=== PATIENT | female | born 1960 | race Caucasian/White ===

== ENCOUNTER 2018-02-17 12:21 | Inpatient (IN) | payer OTHER ==
[~2018-02-17] VITALS: Ht 154.9 cm; Wt 93.6 kg
[~2018-02-17 12:21] MED LIST: ALBU90OI6; BECLOMETHASONE; BUPR100ER; CITA20; CYCL10; DOXY100 PO; DULO30; GLIP5; HYDCHL12.5; INSULANPEN; LISI5; METF500; METF850; METPHE5; Norco 10-325 T1 EACH PO; PRED20 PO; QUET25; SALM50IP; TRAM50
[2018-02-17 13:40] LABS: Source, Urine Clean Catch
[2018-02-17 14:01] LABS: Appearance, Urine Clear (Clear); Bilirubin, Urine Neg (Neg); Blood, Urine Neg (Neg); Color, Urine Yellow (P-Yellow); Glucose Qualitative, Urine 3+ (Neg); Ketones, Urine Neg (Neg); Leukocyte Esterase, Urine Neg (Neg); Nitrite, Urine Neg (Neg); Protein, Urine 2+ (Neg); Urobilinogen, Urine NORM (Normal)
[2018-02-17 14:24] LABS: Amorphous Light (0-Heavy); Bacteria Rare /hpf; Red Blood Cells, Urine 0-2 /hpf (0-2); Squamous Epithelial Cells Rare /hpf (Few); White Blood Cells, Urine 0-2 /hpf (0-5)
[2018-02-18 05:22] LABS: Hematocrit 23.4 % (33.0-51.0); Hemoglobin 7.2 g/dL (11.5-16.0); Mean Corpuscular HGB 25.6 pg (26.0-34.0); Mean Corpuscular HGB Conc 30.8 g/dL (31.5-36.5); Mean Corpuscular Volume 83 fL (80-100); Platelet Count 339 K/mm3 (150-400); RDW Coefficient Variation 14.2 % (11.7-14.2); RDW Standard Deviation 43.1 fL (35.1-46.3); Red Blood Cell Count 2.81 M/mm3 (3.80-5.20); White Blood Cell Count 16.75 K/mm3 (4.00-11.30)
[2018-02-18 05:42] LABS: Albumin, Blood 2.5 g/dL (3.4-5.0); Albumin/Globulin Ratio 0.7 (0.8-1.8); Bilirubin, Total 0.3 mg/dL (0.1-1.0); Bun/Creatinine Ratio 14.3 (12.0-20.0); Calcium, Blood 7.6 mg/dL (8.5-10.1); Creatinine, Blood 1.68 mg/dL (0.40-1.00); Globulin, Blood 3.6 g/dL (2.2-4.0); Potassium, Blood 3.7 mmol/L (3.5-5.5); Total Protein, Blood 6.1 g/dL (6.4-8.2)
[2018-02-18] MEDS ORDERED: METR500 PO (13:26)
[2018-02-18] MEDS ORDERED: CIPR250 PO (13:26)
[2018-02-18] MEDS ORDERED: AMLO10 PO (16:56)
== END 2018-02-18 14:17 | disposition home or self-care (01) | DRG 392 ==
LOC: ER 12:21 → MEDS 17:24 → ENPENDDIS 02-18 12:00 → MEDS 02-18 14:17
PROVIDERS: Emergency Medicine; Internal Medicine
DX: A09 Infectious gastroenteritis and colitis, unspecified (principal); N17.9 Acute kidney failure, unspecified; E11.22 Type 2 diabetes mellitus with diabetic chronic kidney disease; E11.40 Type 2 diabetes mellitus with diabetic neuropathy, unspecified; E11.43 Type 2 diabetes mellitus with diabetic autonomic (poly)neuropathy; I12.9 Hypertensive chronic kidney disease with stage 1 through stage 4 chronic kidney disease, or unspecified chronic kidney disease; K31.84 Gastroparesis; N18.9 Chronic kidney disease, unspecified; Z79.84 Long term (current) use of oral hypoglycemic drugs; G47.33 Obstructive sleep apnea (adult) (pediatric); E78.5 Hyperlipidemia, unspecified; K58.9 Irritable bowel syndrome, unspecified; E66.9 Obesity, unspecified; Z68.39 Body mass index [BMI] 39.0-39.9, adult
CPT/HCPCS: 36415; 71046; 74022; 74176; 80053; 81001; 82947; 85025; 85027; 86850; 86900; 86901; 86923; 87086; 87493; 94660; 94762; 96360; 96361; 99285; J0360; J0744; J1644; J1815; J7030; P9016

== ENCOUNTER → 2018-03-13 | Outpatient (CLI) | payer OTHER ==
[~2018-03-13] MED LIST changes: +AMLO10 PO; +CIPR250 PO; +METR500 PO
[2018-03-13 16:56] LABS: Protein, Urine Quantitative 16.8 mg/dL (0.0-11.9)
[2018-03-13 16:58] LABS: Microalbumin, Urine Quant. 33.7 mg/L (0.000-20.000)
== END | disposition home or self-care (01) ==
LOC: LAB EV 15:27
PROVIDERS: Internal Medicine Nephrology
DX: N18.4 Chronic kidney disease, stage 4 (severe) (principal); D63.1 Anemia in chronic kidney disease; D75.1 Secondary polycythemia; N25.81 Secondary hyperparathyroidism of renal origin; E55.9 Vitamin D deficiency, unspecified; E78.00 Pure hypercholesterolemia, unspecified; R76.9 Abnormal immunological finding in serum, unspecified; R94.5 Abnormal results of liver function studies; R94.6 Abnormal results of thyroid function studies; D51.8 Other vitamin B12 deficiency anemias; D52.8 Other folate deficiency anemias; D50.9 Iron deficiency anemia, unspecified
CPT/HCPCS: 81050; 82043; 84156